=== PATIENT | male | born 1950 | race Caucasian/White ===

== ENCOUNTER 2021-02-17 22:53 | Inpatient (IN) ==
[2021-02-18] MEDS ORDERED: ACETAMINOPHEN 325 MG TABLET PO PRN (00:33)
[2021-02-18] MEDS ORDERED: NICOTINE 21 MG/24 HR PATCH TRANSDERM PRN (00:33)
[2021-02-18] MEDS ORDERED: ONDANSETRON 4 MG/2 ML VIAL IV PRN (00:33)
[2021-02-18] MEDS ORDERED: GLUCAGON 1 MG VIAL IM PRN ×2 (00:33)
[2021-02-18] MEDS ORDERED: diphenhydrAMINE CAP 25 MG CAPSULE PO PRN (00:33)
[2021-02-18] MEDS ORDERED: DOCUSATE SODIUM 100 MG CAPSULE PO PRN (00:33)
[2021-02-18] MEDS ORDERED: hydrALAZINE 20 MG/1 ML VIAL IV PRN (00:33)
[2021-02-18] MEDS ORDERED: MORPHINE 2 MG/1 ML SYRINGE IV PRN (00:33)
[2021-02-18] MEDS ORDERED: guaiFENesin/DM ER 600-30 MG TABLET PO PRN (00:33)
[2021-02-18] MEDS ORDERED: ZALEPLON 5 MG CAPSULE PO PRN (00:33)
[2021-02-18] MEDS ORDERED: DEXTROSE 50% 25 GM/50 ML VIAL IV PRN ×2 (00:33)
[2021-02-18 01:10] LABS: Basophils % 0.3 % (0.0-0.8); Eosinophils # 0.2 10*3/uL (0.0-0.87); Eosinophils % 3.5 % (0.00-10.9); Hematocrit 33.1 VOL% (42.0-52.0); Hemoglobin 9.8 GM/DL (14.0-18.0); Immature Granulocytes % 0.2 %; Immature Granulocytes Absolute 0.01 #; Lymphocytes # 1.4 10*3/uL (1.4-4.0); Lymphocytes % 23.8 % (21.2-54.2); Mean Corpuscular HGB Conc 29.6 GM/DL (32-36); Mean Corpuscular Volume 89.9 FL (87-102); Mean Platelet Volume 14.3 FL (9.6-12.0); Monocytes % 9.1 % (1.7-12.7); Neutrophils % 63.1 % (38.7-73.9); Platelet Count 123 T/CUMM (130-400); Red Blood Count 3.68 MC/CUMM (3.8-5.5); Red Cell Distribution Width 13.8 % (9.3-17.3); White Blood Count 6.1 T/CUMM (4-12)
[2021-02-18 01:18] LABS: Calcium 8.5 MG/DL (8.5-10.1); Osmolality,Calculated 280.7 MOS/KG (273-304); Potassium 4.1 MMOL/L (3.5-5.1)
[2021-02-18 01:22] LABS: Risk Ratio 2.25; VLDL Cholesterol 32.4 MG/DL
[2021-02-18] MEDS ORDERED: ENOXAPARIN 40 MG/0.4 ML SYRINGE SUBCUT SCH (02:00)
[2021-02-18] MEDS ORDERED: ENOXAPARIN 100 MG/ML SYRINGE SUBCUT ONE (05:14)
[2021-02-18] MEDS: INSULIN LISPRO 100 UNIT/ML SUBCUT SCH ×4 (07:37→20:04)
[2021-02-18] MEDS: METOPROLOL TARTRATE 50 MG TABLET PO SCH ×2 (09:17→21:09)
[2021-02-18] MEDS: lisinopriL 20 MG TABLET PO SCH (09:17)
[2021-02-18] MEDS: TAMSULOSIN 0.4 MG CAPSULE PO SCH (09:17)
[2021-02-18] MEDS: ATORVASTATIN 40 MG TABLET PO SCH (09:17)
[2021-02-18] MEDS: CLOPIDOGREL 75 MG TABLET PO SCH (09:17)
[2021-02-18] MEDS: PANTOPRAZOLE 40 MG TABLET PO SCH (09:17)
[2021-02-18] MEDS: DILTIAZEM CD 120 MG CAPSULE PO SCH ×2 (09:17→21:08)
[2021-02-18] MEDS: ASPIRIN EC 81 MG TABLET PO SCH (09:17)
[2021-02-18] MEDS: NITROGLYCERIN 2% OINT 1 INCH/GM PACK TOP SCH ×3 (11:24→23:17)
[2021-02-18 14:18] LABS: CKMB % 5.2 %
[2021-02-18] MEDS ORDERED: ENOXAPARIN 100 MG/ML SYRINGE SUBCUT SCH (18:00)
[2021-02-18] MEDS: ENOXAPARIN 100 MG/ML SYRINGE SUBCUT SCH (21:09)
[2021-02-18] MEDS: NITROGLYCERIN SL 0.4 MG TABLET SL PRN (21:40)
[2021-02-19] MEDS: NITROGLYCERIN SL 0.4 MG TABLET SL PRN ×5 (01:44→22:02)
[2021-02-19 05:29] LABS: Basophils % 0.2 % (0.0-0.8); Eosinophils # 0.2 10*3/uL (0.0-0.87); Eosinophils % 3.9 % (0.00-10.9); Hematocrit 32.5 VOL% (42.0-52.0); Immature Granulocytes % 0.2 %; Immature Granulocytes Absolute 0.01 #; Lymphocytes # 1.2 10*3/uL (1.4-4.0); Lymphocytes % 26.5 % (21.2-54.2); Mean Corpuscular HGB Conc 30.8 GM/DL (32-36); Mean Corpuscular Volume 85.8 FL (87-102); Mean Platelet Volume 13.8 FL (9.6-12.0); Monocytes % 9.1 % (1.7-12.7); Neutrophils % 60.1 % (38.7-73.9); Platelet Count 115 T/CUMM (130-400); Red Blood Count 3.79 MC/CUMM (3.8-5.5); Red Cell Distribution Width 13.9 % (9.3-17.3); White Blood Count 4.6 T/CUMM (4-12)
[2021-02-19 05:43] LABS: Calcium 8.7 MG/DL (8.5-10.1); Osmolality,Calculated 283.3 MOS/KG (273-304); Potassium 3.9 MMOL/L (3.5-5.1)
[2021-02-19] MEDS: NITROGLYCERIN 2% OINT 1 INCH/GM PACK TOP SCH ×4 (05:45→23:51)
[2021-02-19 06:09] LABS: Platelet Estimate Adequate; Stomatocytes Slight
[2021-02-19] MEDS: INSULIN LISPRO 100 UNIT/ML SUBCUT SCH ×4 (08:12→20:35)
[2021-02-19] MEDS: ATORVASTATIN 40 MG TABLET PO SCH (09:34)
[2021-02-19] MEDS: lisinopriL 20 MG TABLET PO SCH (09:34)
[2021-02-19] MEDS: TAMSULOSIN 0.4 MG CAPSULE PO SCH (09:34)
[2021-02-19] MEDS: CLOPIDOGREL 75 MG TABLET PO SCH (09:34)
[2021-02-19] MEDS: METOPROLOL TARTRATE 50 MG TABLET PO SCH ×2 (09:34→20:34)
[2021-02-19] MEDS: PANTOPRAZOLE 40 MG TABLET PO SCH (09:34)
[2021-02-19] MEDS: DILTIAZEM CD 120 MG CAPSULE PO SCH ×2 (09:34→20:34)
[2021-02-19] MEDS: ASPIRIN EC 81 MG TABLET PO SCH (09:34)
[2021-02-19] MEDS: ENOXAPARIN 100 MG/ML SYRINGE SUBCUT SCH ×2 (09:37→20:35)
[2021-02-20 05:33] LABS: Basophils % 0.2 % (0.0-0.8); Eosinophils # 0.2 10*3/uL (0.0-0.87); Eosinophils % 4.2 % (0.00-10.9); Hematocrit 33.1 VOL% (42.0-52.0); Hemoglobin 10.2 GM/DL (14.0-18.0); Immature Granulocytes % 0.4 %; Immature Granulocytes Absolute 0.02 #; Lymphocytes # 1.3 10*3/uL (1.4-4.0); Lymphocytes % 28.5 % (21.2-54.2); Mean Corpuscular HGB Conc 30.8 GM/DL (32-36); Mean Corpuscular Volume 85.3 FL (87-102); Monocytes % 12.5 % (1.7-12.7); Neutrophils % 54.2 % (38.7-73.9); Platelet Count 125 T/CUMM (130-400); Red Blood Count 3.88 MC/CUMM (3.8-5.5); Red Cell Distribution Width 13.9 % (9.3-17.3); White Blood Count 4.5 T/CUMM (4-12)
[2021-02-20] MEDS: NITROGLYCERIN 2% OINT 1 INCH/GM PACK TOP SCH ×2 (05:41→13:53)
[2021-02-20 05:55] LABS: Calcium 8.6 MG/DL (8.5-10.1); Osmolality,Calculated 285.1 MOS/KG (273-304); Potassium 3.8 MMOL/L (3.5-5.1)
[2021-02-20 06:07] LABS: Platelet Estimate Adequate
[2021-02-20 06:09] LABS: Anisocytosis 1+; Tear Drop Cells Few
[2021-02-20] MEDS: DILTIAZEM CD 120 MG CAPSULE PO SCH ×2 (09:32→21:16)
[2021-02-20] MEDS: CLOPIDOGREL 75 MG TABLET PO SCH (09:32)
[2021-02-20] MEDS: TAMSULOSIN 0.4 MG CAPSULE PO SCH (09:32)
[2021-02-20] MEDS: lisinopriL 20 MG TABLET PO SCH (09:33)
[2021-02-20] MEDS: PANTOPRAZOLE 40 MG TABLET PO SCH (09:33)
[2021-02-20] MEDS: METOPROLOL TARTRATE 50 MG TABLET PO SCH ×2 (09:33→21:16)
[2021-02-20] MEDS: ASPIRIN EC 81 MG TABLET PO SCH (09:33)
[2021-02-20] MEDS: ATORVASTATIN 40 MG TABLET PO SCH (09:40)
[2021-02-20] MEDS: ENOXAPARIN 100 MG/ML SYRINGE SUBCUT SCH (09:42)
[2021-02-20] MEDS ORDERED: diphenhydrAMINE CAP 50 MG CAPSULE PO ONE (10:15)
[2021-02-20] MEDS ORDERED: DIAZEPAM 5 MG TABLET PO ONE (10:15)
[2021-02-20] MEDS: INSULIN LISPRO 100 UNIT/ML SUBCUT SCH ×4 (10:16→21:16)
[2021-02-20] MEDS ORDERED: SODIUM CHLORIDE 0.45% 1,000 ML IV SCH (13:30)
[2021-02-20] MEDS ORDERED: NITROGLYCERIN DRIP 50 MG/250 ML BOTTLE IV ONE (16:16)
[2021-02-20] MEDS ORDERED: MIDAZOLAM 2 MG/2 ML VIAL ONE ×2 (16:16→16:28)
[2021-02-20] MEDS ORDERED: LIDOCAINE 1% 20 ML VIAL ONE (16:16)
[2021-02-20] MEDS ORDERED: fentaNYL 100 MCG/2 ML VIAL ONE (16:16)
[2021-02-20] MEDS ORDERED: HEPARIN/NACL 0.9% 2 UNITS/ML 2,000 UNIT/1,000 ML BAG IV ONE (16:17)
[2021-02-20] MEDS ORDERED: VERAPAMIL 5 MG/2 ML VIAL ONE (16:17)
[2021-02-20] MEDS ORDERED: ENOXAPARIN 60 MG/0.6 ML SYRINGE ONE (16:35)
[2021-02-20] MEDS: RANOLAZINE 500 MG TABLET PO SCH (21:17)
[2021-02-21 05:50] LABS: Basophils % 0.2 % (0.0-0.8); Eosinophils # 0.2 10*3/uL (0.0-0.87); Eosinophils % 3.8 % (0.00-10.9); Hematocrit 32.6 VOL% (42.0-52.0); Hemoglobin 10.1 GM/DL (14.0-18.0); Lymphocytes # 1.1 10*3/uL (1.4-4.0); Lymphocytes % 25.3 % (21.2-54.2); Mean Corpuscular Volume 86.5 FL (87-102); Mean Platelet Volume 14.6 FL (9.6-12.0); Monocytes % 11.1 % (1.7-12.7); Neutrophils % 59.6 % (38.7-73.9); Platelet Count 106 T/CUMM (130-400); Red Blood Count 3.77 MC/CUMM (3.8-5.5); Red Cell Distribution Width 13.6 % (9.3-17.3); White Blood Count 4.5 T/CUMM (4-12)
[2021-02-21 05:58] LABS: Calcium 8.1 MG/DL (8.5-10.1); Osmolality,Calculated 280.5 MOS/KG (273-304); Potassium 3.8 MMOL/L (3.5-5.1)
[2021-02-21 06:14] LABS: Calcium 8.1 MG/DL (8.5-10.1); Osmolality,Calculated 279.5 MOS/KG (273-304); Potassium 3.8 MMOL/L (3.5-5.1)
[2021-02-21 06:23] LABS: Hypochromasia 1+; Microcytosis Slight
[2021-02-21 06:24] LABS: Ovalocytes Slight; Platelet Estimate Decreased
[2021-02-21 07:58] VITALS: BP 143/74
[2021-02-21] MEDS: INSULIN LISPRO 100 UNIT/ML SUBCUT SCH (08:00)
[2021-02-21] MEDS: CLOPIDOGREL 75 MG TABLET PO SCH (08:19)
[2021-02-21] MEDS: RANOLAZINE 500 MG TABLET PO SCH (08:19)
[2021-02-21] MEDS: DILTIAZEM CD 120 MG CAPSULE PO SCH (08:19)
[2021-02-21] MEDS: PANTOPRAZOLE 40 MG TABLET PO SCH (08:20)
[2021-02-21] MEDS: lisinopriL 20 MG TABLET PO SCH (08:20)
[2021-02-21] MEDS: ATORVASTATIN 40 MG TABLET PO SCH (08:20)
[2021-02-21] MEDS: ASPIRIN EC 81 MG TABLET PO SCH (08:20)
[2021-02-21] MEDS: METOPROLOL TARTRATE 50 MG TABLET PO SCH (08:20)
[2021-02-21] MEDS: TAMSULOSIN 0.4 MG CAPSULE PO SCH (08:20)
== END 2021-02-21 11:11 | disposition home or self-care (01) | DRG 281 ==
LOC: N.TELEN → SUATTDRO 02-18 00:10
PROVIDERS: ADMIT Emergency Medicine; ATTEND Internal Medicine

== ENCOUNTER 2021-03-17 02:24 | Observation (INO) ==
[2021-03-17] MEDS ORDERED: ASPIRIN 325 MG TABLET PO STA (02:30)
[2021-03-17] MEDS ORDERED: NITROGLYCERIN SL 0.4 MG TABLET SL PRN (02:30)
[2021-03-17] MEDS ORDERED: LABETALOL 20 MG/4 ML SYRINGE IV STA (02:50)
[2021-03-17 03:16] LABS: Basophils % 0.4 % (0.0-0.8); Eosinophils # 0.1 10*3/uL (0.0-0.87); Eosinophils % 1.2 % (0.00-10.9); Hemoglobin 8.7 GM/DL (14.0-18.0); Immature Granulocytes % 0.6 %; Immature Granulocytes Absolute 0.03 #; Lymphocytes # 0.9 10*3/uL (1.4-4.0); Lymphocytes % 17.9 % (21.2-54.2); Mean Corpuscular HGB Conc 31.1 GM/DL (32-36); Mean Corpuscular Volume 84.3 FL (87-102); Mean Platelet Volume 13.2 FL (9.6-12.0); Monocytes % 7.2 % (1.7-12.7); Neutrophils % 72.7 % (38.7-73.9); Platelet Count 104 T/CUMM (130-400); Red Blood Count 3.32 MC/CUMM (3.8-5.5)
[2021-03-17 03:27] LABS: INR 1.1; PT Patient Result 12.4 SECS (10.5-12.0); Partial Thromboplastin Time 27.2 SECS (23.8-32.1)
[2021-03-17 03:37] LABS: Alanine Aminotransferase 30 U/L (16-61); Alkaline Phosphatase 52 U/L (45-117); Aspartate Amino Transferase 14 U/L (0-37); Bilirubin,Total < 0.39 MG/DL (0.20-1.00); Blood Urea Nitrogen 13 MG/DL (7-18); Calcium 7.6 MG/DL (8.5-10.1); Carbon Dioxide 24 MMOL/L (21-32); Estimated Glom Filtration Rate 87 ML/MIN; Glucose 91 MG/DL (74-106); Osmolality,Calculated 291.4 MOS/KG (273-304); Potassium 3.3 MMOL/L (3.5-5.1); Sodium 147 MMOL/L (136-145); Total Protein 5.6 G/DL (6.4-8.2)
[2021-03-17] MEDS ORDERED: MAGNESIUM SULF RIDER 1 GM/100 ML PREMIX IV STA (03:46)
[2021-03-17] MEDS ORDERED: POTASSIUM CHLORIDE 20 MEQ TABLET PO STA (03:48)
[2021-03-17 03:50] LABS: Hypochromasia Slight
[2021-03-17 03:51] LABS: Microcytosis Slight; Platelet Estimate Normal
[2021-03-17] MEDS ORDERED: ONDANSETRON 4 MG/2 ML VIAL IV PRN (04:19)
[2021-03-17] MEDS ORDERED: ACETAMINOPHEN 325 MG TABLET PO PRN (04:19)
[2021-03-17] MEDS ORDERED: MORPHINE 2 MG/1 ML SYRINGE IV PRN (04:28)
[2021-03-17 06:57] LABS: Albumin 3.3 G/DL (3.4-5.0); Bilirubin,Total 0.7 MG/DL (0.20-1.00); Osmolality,Calculated 280.5 MOS/KG (273-304); Potassium 4.5 MMOL/L (3.5-5.1); Total Protein 6.3 G/DL (6.4-8.2)
[2021-03-17] MEDS ORDERED: DEXTROSE 50% 25 GM/50 ML SYRINGE IV PRN (07:24)
[2021-03-17] MEDS ORDERED: GLUCAGON 1 MG VIAL IM PRN (07:24)
[2021-03-17] MEDS ORDERED: METOPROLOL TARTRATE 50 MG TABLET PO SCH (09:00)
[2021-03-17] MEDS ORDERED: ENOXAPARIN 40 MG/0.4 ML SYRINGE SUBCUT SCH (09:00)
[2021-03-17] MEDS ORDERED: ASPIRIN EC 325 MG TABLET PO SCH (09:00)
[2021-03-17] MEDS ORDERED: RANOLAZINE 500 MG TABLET PO SCH (09:00)
[2021-03-17] MEDS: MULTIVITAMIN (CENTRUM) TABLET PO SCH (11:55)
[2021-03-17] MEDS: ASPIRIN EC 81 MG TABLET PO SCH (11:55)
[2021-03-17] MEDS: CLOPIDOGREL 75 MG TABLET PO SCH (11:55)
[2021-03-17] MEDS: lisinopriL 20 MG TABLET PO SCH (11:55)
[2021-03-17] MEDS: TAMSULOSIN 0.4 MG CAPSULE PO SCH (11:55)
[2021-03-17] MEDS: FERROUS SULFATE 325 MG TABLET PO SCH (11:55)
[2021-03-17] MEDS: DILTIAZEM CD 120 MG CAPSULE PO SCH ×2 (11:55→21:09)
[2021-03-17] MEDS: PANTOPRAZOLE 40 MG TABLET PO SCH (11:55)
[2021-03-17] MEDS: INSULIN LISPRO 100 UNIT/ML SUBCUT SCH ×4 (12:07→20:19)
[2021-03-17] MEDS: ZINC GLUCONATE 50 MG TABLET PO SCH (12:20)
[2021-03-17] MEDS: HEPARIN DRIP 25,000 UNITS/500 ML PREMIX IV SCH (12:25)
[2021-03-17] MEDS: sitaGLIPtin 100 MG TABLET PO SCH (12:38)
[2021-03-17] MEDS: OMEGA 3 ACID ETHYL ESTERS 1 GM CAPSULE PO SCH (12:38)
[2021-03-17] MEDS: CYANOCOBALAMIN 5000 MCG PO SCH (13:43)
[2021-03-17 14:27] LABS: Basophils % 0.2 % (0.0-0.8); Eosinophils # 0.1 10*3/uL (0.0-0.87); Eosinophils % 2.3 % (0.00-10.9); Hematocrit 31.3 VOL% (42.0-52.0); Hemoglobin 9.5 GM/DL (14.0-18.0); Immature Granulocytes % 0.2 %; Immature Granulocytes Absolute 0.01 #; Lymphocytes # 1.7 10*3/uL (1.4-4.0); Lymphocytes % 32.1 % (21.2-54.2); Mean Corpuscular HGB Conc 30.4 GM/DL (32-36); Mean Platelet Volume 14.3 FL (9.6-12.0); Monocytes % 9.1 % (1.7-12.7); Neutrophils % 56.1 % (38.7-73.9); Platelet Count 103 T/CUMM (130-400); Red Blood Count 3.64 MC/CUMM (3.8-5.5); Red Cell Distribution Width 14.1 % (9.3-17.3); White Blood Count 5.3 T/CUMM (4-12)
[2021-03-17 20:39] LABS: INR 1.1
[2021-03-17] MEDS ORDERED: FINASTERIDE 5 MG TABLET PO SCH (21:00)
[2021-03-17] MEDS ORDERED: ISOSORBIDE MONONITRATE 60 MG TABLET PO SCH (21:00)
[2021-03-17] MEDS ORDERED: ATORVASTATIN 40 MG TABLET PO SCH (21:00)
[2021-03-17] MEDS ORDERED: CYCLOBENZAPRINE 10 MG TABLET PO SCH (21:00)
[2021-03-17] MEDS ORDERED: NIACIN 500 MG TABLET PO SCH (21:00)
[2021-03-17] MEDS: METOPROLOL TARTRATE 100 MG TABLET PO SCH (21:09)
[2021-03-17] MEDS: RANOLAZINE 500 MG TABLET PO SCH (21:09)
[2021-03-17 21:24] LABS: Partial Thromboplastin Time 192.4 SECS (23.8-32.1)
[2021-03-18 05:45] LABS: Basophils % 0.2 % (0.0-0.8); Eosinophils # 0.1 10*3/uL (0.0-0.87); Eosinophils % 2.2 % (0.00-10.9); Hematocrit 30.4 VOL% (42.0-52.0); Hemoglobin 9.2 GM/DL (14.0-18.0); Immature Granulocytes % 0.3 %; Immature Granulocytes Absolute 0.02 #; Lymphocytes # 1.6 10*3/uL (1.4-4.0); Lymphocytes % 27.1 % (21.2-54.2); Mean Corpuscular HGB Conc 30.3 GM/DL (32-36); Mean Corpuscular Volume 85.6 FL (87-102); Monocytes % 7.9 % (1.7-12.7); Neutrophils % 62.3 % (38.7-73.9); Platelet Count 98 T/CUMM (130-400); Red Blood Count 3.55 MC/CUMM (3.8-5.5); Red Cell Distribution Width 14.1 % (9.3-17.3); White Blood Count 5.8 T/CUMM (4-12)
[2021-03-18 05:54] LABS: Calcium 8.8 MG/DL (8.5-10.1); Osmolality,Calculated 280.5 MOS/KG (273-304); Potassium 4.1 MMOL/L (3.5-5.1)
[2021-03-18] MEDS: HEPARIN DRIP 25,000 UNITS/500 ML PREMIX IV SCH (06:02)
[2021-03-18 06:08] LABS: % Iron Saturation 14.3 % (18-50); Ferritin 10.1 ng/mL (26-388)
[2021-03-18 06:14] LABS: Risk Ratio 3.41; VLDL Cholesterol 49.6 MG/DL
[2021-03-18] MEDS ORDERED: MAGNESIUM SULF RIDER 2 GM/50 ML PREMIX IV PRN (08:19)
[2021-03-18] MEDS ORDERED: MAGNESIUM SULF RIDER 4 GM/100 ML PREMIX IV PRN (08:19)
[2021-03-18] MEDS ORDERED: DICLOFENAC 1% GEL 100 GM TUBE TOP SCH (09:00)
[2021-03-18] MEDS: sitaGLIPtin 100 MG TABLET PO SCH (09:20)
[2021-03-18] MEDS: OMEGA 3 ACID ETHYL ESTERS 1 GM CAPSULE PO SCH (09:20)
[2021-03-18] MEDS: RANOLAZINE 500 MG TABLET PO SCH (09:20)
[2021-03-18] MEDS: CLOPIDOGREL 75 MG TABLET PO SCH (09:20)
[2021-03-18] MEDS: FERROUS SULFATE 325 MG TABLET PO SCH (09:21)
[2021-03-18] MEDS: lisinopriL 20 MG TABLET PO SCH (09:21)
[2021-03-18] MEDS: ASPIRIN EC 81 MG TABLET PO SCH (09:21)
[2021-03-18] MEDS: TAMSULOSIN 0.4 MG CAPSULE PO SCH (09:21)
[2021-03-18] MEDS: PANTOPRAZOLE 40 MG TABLET PO SCH (09:21)
[2021-03-18] MEDS: ZINC GLUCONATE 50 MG TABLET PO SCH (09:21)
[2021-03-18] MEDS: DILTIAZEM CD 120 MG CAPSULE PO SCH (09:21)
[2021-03-18] MEDS: MULTIVITAMIN (CENTRUM) TABLET PO SCH (09:21)
[2021-03-18] MEDS: METOPROLOL TARTRATE 100 MG TABLET PO SCH (09:21)
[2021-03-18] MEDS: INSULIN LISPRO 100 UNIT/ML SUBCUT SCH ×3 (09:29→16:03)
[2021-03-18] MEDS: CYANOCOBALAMIN 5000 MCG PO SCH (09:29)
[2021-03-18] MEDS ORDERED: ENOXAPARIN 100 MG/ML SYRINGE SUBCUT SCH (12:00)
[2021-03-18 16:58] VITALS: BP 106/64
== END 2021-03-18 17:17 | disposition home or self-care (01) ==
LOC: EDBD → EDUNIT# → N.ED 02:24 → N.EDINP 02:24 → SUATTDRO 08:52 → N.TELEN 12:45
PROVIDERS: ADMIT Internal Medicine; ATTEND Internal Medicine

== ENCOUNTER 2021-12-21 02:12 | Observation (INO) ==
[2021-12-21] MEDS ORDERED: ASPIRIN 325 MG TABLET PO STA (02:34)
[2021-12-21] MEDS ORDERED: ONDANSETRON 4 MG/2 ML VIAL IV STA (02:34)
[2021-12-21] MEDS ORDERED: NITROGLYCERIN 2% OINT 1 INCH/GM PACK TOP STA (02:34)
[2021-12-21] MEDS ORDERED: MORPHINE 2 MG/1 ML SYRINGE IV STA (02:34)
[2021-12-21] MEDS ORDERED: DILTIAZEM 100 MG VIAL.ADD IV ONE (02:35)
[2021-12-21] MEDS ORDERED: DILTIAZEM 25 MG/5 ML VIAL IV ONE (02:35)
[2021-12-21] MEDS ORDERED: DILTIAZEM 25 MG/5 ML VIAL IV STA (02:39)
[2021-12-21 02:45] LABS: Basophils % 0.1 % (0.0-0.8); Eosinophils # 0.1 10*3/uL (0.0-0.87); Eosinophils % 1.9 % (0.00-10.9); Hematocrit 38.2 VOL% (42.0-52.0); Immature Granulocytes % 0.1 %; Immature Granulocytes Absolute 0.01 #; Lymphocytes % 29.1 % (21.2-54.2); Mean Corpuscular HGB Conc 31.4 GM/DL (32-36); Mean Corpuscular Volume 81.4 FL (87-102); Monocytes # 0.7 10*3/uL (0.11-0.8); Monocytes % 10.8 % (1.7-12.7); Platelet Count 120 T/CUMM (130-400); Red Blood Count 4.69 MC/CUMM (3.8-5.5); Red Cell Distribution Width 14.6 % (9.3-17.3); White Blood Count 6.9 T/CUMM (4-12)
[2021-12-21 02:56] LABS: INR 0.9; PT Patient Result 10.3 SECS (10.1-12.1); Partial Thromboplastin Time 27.1 SECS (23.7-32.9)
[2021-12-21] MEDS ORDERED: DILTIAZEM INJ 100 MG in SODIUM CHLORIDE 0.9% 100 ML IV SCH (03:00)
[2021-12-21 03:07] LABS: Alanine Aminotransferase 42 U/L (16-61); Albumin 3.9 G/DL (3.4-5.0); Alkaline Phosphatase 76 U/L (45-117); Aspartate Amino Transferase 18 U/L (0-37); Bilirubin,Total < 0.39 MG/DL (0.20-1.00); Blood Urea Nitrogen 20 MG/DL (7-18); Calcium 9.8 MG/DL (8.5-10.1); Carbon Dioxide 28 MMOL/L (21-32); Chloride 104 MMOL/L (98-107); Glucose 191 MG/DL (74-106); Osmolality,Calculated 286.4 MOS/KG (273-304); Potassium 3.5 MMOL/L (3.5-5.1); Sodium 140 MMOL/L (136-145); Total Protein 7.9 G/DL (6.4-8.2)
[2021-12-21] MEDS ORDERED: MAGNESIUM SULF RIDER 2 GM/50 ML PREMIX IV STA (03:12)
[2021-12-21] MEDS ORDERED: METOPROLOL TARTRATE 5 MG/5 ML VIAL IV STA (03:12)
[2021-12-21] MEDS ORDERED: ENOXAPARIN 100 MG/ML SYRINGE SUBCUT STA (03:13)
[2021-12-21] MEDS ORDERED: ONDANSETRON 4 MG/2 ML VIAL IV PRN (04:04)
[2021-12-21] MEDS ORDERED: GLUCAGON 1 MG VIAL IM PRN (04:04)
[2021-12-21] MEDS ORDERED: hydrALAZINE 20 MG/1 ML VIAL IV PRN (04:04)
[2021-12-21] MEDS ORDERED: ACETAMINOPHEN 325 MG TABLET PO PRN (04:04)
[2021-12-21] MEDS ORDERED: ALUMINUM/MAGNES/SIMETH MAX STR 30 ML UDCUP PO PRN (04:04)
[2021-12-21] MEDS ORDERED: DEXTROSE 10% 250 ML BAG IV PRN (04:04)
[2021-12-21] MEDS ORDERED: NITROGLYCERIN SL 0.4 MG TABLET SL PRN (05:14)
[2021-12-21 05:22] LABS: PT Patient Result 10.6 SECS (10.1-12.1)
[2021-12-21] MEDS ORDERED: METOPROLOL TARTRATE 50 MG TABLET PO SCH ×2 (05:30→09:00)
[2021-12-21] MEDS ORDERED: DICLOFENAC 1% GEL 100 GM TUBE TOP PRN (05:30)
[2021-12-21 06:32] LABS: Risk Ratio 3.48; VLDL Cholesterol 52.8 MG/DL
[2021-12-21] MEDS ORDERED: INSULIN REGULAR 100 UNIT/ML SUBCUT SCH (07:30)
[2021-12-21 09:00] LABS: Calcium 9.3 MG/DL (8.5-10.1); Osmolality,Calculated 280.8 MOS/KG (273-304); Potassium 3.9 MMOL/L (3.5-5.1)
[2021-12-21] MEDS ORDERED: MULTIVITAMIN (CENTRUM) TABLET PO SCH (09:00)
[2021-12-21] MEDS ORDERED: PANTOPRAZOLE 40 MG TABLET PO SCH (09:00)
[2021-12-21] MEDS ORDERED: lisinopriL 20 MG TABLET PO SCH (09:00)
[2021-12-21] MEDS ORDERED: ZINC GLUCONATE 50 MG TABLET PO SCH (09:00)
[2021-12-21] MEDS ORDERED: TAMSULOSIN 0.4 MG CAPSULE PO SCH (09:00)
[2021-12-21] MEDS ORDERED: AMIODARONE 200 MG TABLET PO SCH (09:00)
[2021-12-21] MEDS ORDERED: DOCUSATE SODIUM 100 MG CAPSULE PO SCH (09:00)
[2021-12-21] MEDS ORDERED: ASPIRIN EC 81 MG TABLET PO SCH (09:00)
[2021-12-21] MEDS ORDERED: ALPHA LIPOIC ACID 200 MG PO SCH (09:00)
[2021-12-21] MEDS ORDERED: CLOPIDOGREL 75 MG TABLET PO SCH (09:00)
[2021-12-21] MEDS ORDERED: CYANOCOBALAMIN 5000 MCG PO SCH (09:00)
[2021-12-21] MEDS ORDERED: FERROUS SULFATE 325 MG TABLET PO SCH (09:00)
[2021-12-21] MEDS ORDERED: APIXABAN 5 MG TABLET PO SCH (09:00)
[2021-12-21] MEDS ORDERED: DILTIAZEM CD 120 MG CAPSULE PO SCH (09:00)
[2021-12-21 09:37] VITALS: BP 125/60
[2021-12-21] MEDS ORDERED: FINASTERIDE 5 MG TABLET PO SCH (21:00)
[2021-12-21] MEDS ORDERED: ISOSORBIDE MONONITRATE 60 MG TABLET PO SCH (21:00)
[2021-12-21] MEDS ORDERED: CYCLOBENZAPRINE 10 MG TABLET PO SCH (21:00)
[2021-12-21] MEDS ORDERED: RANOLAZINE 500 MG TABLET PO SCH (21:00)
[2021-12-21] MEDS ORDERED: NIACIN 500 MG TABLET PO SCH (21:00)
[2021-12-21] MEDS ORDERED: ENOXAPARIN 40 MG/0.4 ML SYRINGE SUBCUT SCH (21:00)
[2021-12-21] MEDS ORDERED: ATORVASTATIN 40 MG TABLET PO SCH (21:00)
[2021-12-22] MEDS ORDERED: sitaGLIPtin 100 MG TABLET PO SCH (09:00)
[2021-12-22] MEDS ORDERED: OMEGA 3 ACID ETHYL ESTERS 1 GM CAPSULE PO SCH (09:00)
[2021-12-22] MEDS ORDERED: COENZYME Q10 100 MG CAPSULE PO SCH (09:00)
== END 2021-12-21 08:55 | disposition home or self-care (01) ==
LOC: N.EDINP 02:12 → N.ED 02:12 → SUATTDRO 04:04 → N.EDINP 08:56
PROVIDERS: ADMIT Family Medicine; ATTEND Internal Medicine